=== PATIENT | male | born 1945 | race Two or more races ===

== ENCOUNTER 2018-06-29 17:12 | Outpatient (CLI) | payer OTHER | END 2018-06-29 17:17 | disposition home or self-care (01) | LOC: LAB 17:12 | DX: E11.40 Type 2 diabetes mellitus with diabetic neuropathy, unspecified (principal); E11.22 Type 2 diabetes mellitus with diabetic chronic kidney disease; R97.0 Elevated carcinoembryonic antigen [CEA]; R97.20 Elevated prostate specific antigen [PSA]; E78.2 Mixed hyperlipidemia; I65.23 Occlusion and stenosis of bilateral carotid arteries; I10 Essential (primary) hypertension; D50.8 Other iron deficiency anemias; D51.8 Other vitamin B12 deficiency anemias; E03.8 Other specified hypothyroidism; E06.3 Autoimmune thyroiditis; R97.21 Rising PSA following treatment for malignant neoplasm of prostate; R97.8 Other abnormal tumor markers ==